=== PATIENT | female | born 1985 | race Caucasian/White ===

== ENCOUNTER 2020-12-22 18:56 | Emergency (ER) | payer OTHER ==
[~2020-12-22 18:56] MED LIST: AMOXICILLIN875 MG PO; BACTRIM DS TAB1 EACH PO; DEBROX15 ML AU; KEFLEX CAP 500500 MG PO; MACROBID 100 M100 MG PO; PERCOCET 10-321 EACH PO; TESSALON PERLE100 MG PO; TORADOL 10 MG T10 MG PO; ZOFRAN4 MG PO
== END 2020-12-22 21:50 | disposition home or self-care (01) ==
LOC: ER1 18:56
DX: S93.402A Sprain of unspecified ligament of left ankle, initial encounter (principal); X50.0XXA Overexertion from strenuous movement or load, initial encounter
CPT/HCPCS: 73610; 99283

== ENCOUNTER 2021-02-05 05:13 | Emergency (ER) | payer OTHER ==
[2021-02-05] MEDS ORDERED: TESSALON PERLE100 MG PO (07:59)
[2021-02-05] MEDS ORDERED: PROAIR DIGIHAL90 MCG INH (07:59)
[2021-02-05] MEDS ORDERED: MEDROL DOSEPAK 24 MG PO (08:11)
== END 2021-02-05 08:10 | disposition home or self-care (01) ==
LOC: ER1 05:13
DX: J06.9 Acute upper respiratory infection, unspecified (principal); Z20.822 Contact with and (suspected) exposure to COVID-19
CPT/HCPCS: 0240U; 87081; 87880; 96374; 99283; J1885

== ENCOUNTER 2021-02-28 09:32 | Emergency (ER) | payer OTHER ==
[~2021-02-28 09:32] MED LIST changes: +MEDROL DOSEPAK 24 MG PO; +PROAIR DIGIHAL90 MCG INH
[2021-02-28 11:11] LABS: BUN/CREATININE RATIO 14 (0-10)
[2021-02-28 11:16] LABS: HEMOGLOBIN 14.6 gm/dl (12.3-15.3); RED BLOOD COUNT 5.53 M/UL (4.00-5.10); WHITE BLOOD COUNT 15.4 K/UL (4.5-11.0)
[2021-02-28] MEDS ORDERED: NASONEX17 GM (12:45)
[2021-02-28] MEDS ORDERED: MACROBID 100 M100 MG PO (12:45)
== END 2021-02-28 13:02 | disposition home or self-care (01) ==
LOC: ER1 09:32
PROVIDERS: Emergency Medicine
DX: N39.0 Urinary tract infection, site not specified (principal); H92.02 Otalgia, left ear; Z20.822 Contact with and (suspected) exposure to COVID-19
CPT/HCPCS: 0240U; 71045; 80053; 81001; 83690; 85025; 87081; 87880; 93005; 99284

== ENCOUNTER 2021-06-17 10:09 | Emergency (ER) | payer OTHER ==
[~2021-06-17 10:09] MED LIST changes: +NASONEX17 GM
== END 2021-06-17 11:12 | disposition home or self-care (01) ==
LOC: ER1 10:09
DX: R52 Pain, unspecified (principal); R50.9 Fever, unspecified; Z20.822 Contact with and (suspected) exposure to COVID-19
CPT/HCPCS: 99283; U0003

== ENCOUNTER 2021-07-04 09:02 | Emergency (ER) | payer OTHER ==
[2021-07-04] MEDS ORDERED: NAPROXEN500 MG PO (11:24)
[2021-07-04] MEDS ORDERED: NORFLEX 100 MG100 MG PO (11:24)
== END 2021-07-04 12:20 | disposition home or self-care (01) ==
LOC: ER1 09:02
DX: S40.011A Contusion of right shoulder, initial encounter (principal); S20.212A Contusion of left front wall of thorax, initial encounter; K21.9 Gastro-esophageal reflux disease without esophagitis; V49.9XXA Car occupant (driver) (passenger) injured in unspecified traffic accident, initial encounter
CPT/HCPCS: 71046; 73030; 99284

== ENCOUNTER → 2021-08-20 | Outpatient (CLI) | payer OTHER ==
[~2021-08-20] MED LIST changes: +NAPROXEN500 MG PO; +NORFLEX 100 MG100 MG PO
== END ==
LOC: SLEEP 14:24
DX: G47.30 Sleep apnea, unspecified (principal); G47.33 Obstructive sleep apnea (adult) (pediatric)
CPT/HCPCS: 95811

== ENCOUNTER → 2021-08-28 | Outpatient (CLI) | payer OTHER ==
[2021-08-29 08:14] LABS: VITAMIN D, 25-HYDROXY 21.9 ng/mL (30.0-100.0)
[2021-08-29 10:14] LABS: RHEUMATOID ARTHRITIS FACTOR <10.0 IU/mL (<14.0)
== END ==
LOC: RAD 12:18
PROVIDERS: Nurse Practitioner Family
DX: D89.9 Disorder involving the immune mechanism, unspecified (principal); M25.50 Pain in unspecified joint; R76.8 Other specified abnormal immunological findings in serum; E55.9 Vitamin D deficiency, unspecified; M79.10 Myalgia, unspecified site; M25.539 Pain in unspecified wrist
CPT/HCPCS: 36415; 73110; 82550; 83520; 84439; 84443; 85652; 86140; 86200; 86431

== ENCOUNTER 2021-10-20 02:07 | Emergency (ER) | payer OTHER ==
[2021-10-20] MEDS ORDERED: MUCINEX DM ER1 EACH PO (05:39)
== END 2021-10-20 05:57 | disposition home or self-care (01) ==
LOC: ER1 02:07
DX: U07.1 COVID-19 (principal)
CPT/HCPCS: 99283; U0002

== ENCOUNTER 2021-11-06 11:36 | Emergency (ER) | payer OTHER ==
[~2021-11-06 11:36] MED LIST changes: +MUCINEX DM ER1 EACH PO
[2021-11-06] MEDS ORDERED: BROMFED DM COU473 ML PO (13:22)
== END 2021-11-06 13:30 | disposition home or self-care (01) ==
LOC: ER1 11:36
DX: J39.9 Disease of upper respiratory tract, unspecified (principal); K21.9 Gastro-esophageal reflux disease without esophagitis; Z88.8 Allergy status to other drugs, medicaments and biological substances; Z88.1 Allergy status to other antibiotic agents; Z88.6 Allergy status to analgesic agent; Z20.822 Contact with and (suspected) exposure to COVID-19
CPT/HCPCS: 0240U; 99283

== ENCOUNTER 2021-11-13 22:38 | Emergency (ER) | payer OTHER ==
[~2021-11-13 22:38] MED LIST changes: +BROMFED DM COU473 ML PO
[2021-11-13 23:05] LABS: HEMOGLOBIN 13.4 gm/dl (12.3-15.3); RED BLOOD COUNT 4.88 M/UL (4.00-5.10); WHITE BLOOD COUNT 9.8 K/UL (4.5-11.0)
[2021-11-13 23:25] LABS: BUN/CREATININE RATIO 10 (0-10)
== END 2021-11-14 01:58 | disposition home or self-care (01) ==
LOC: ER1 22:38
PROVIDERS: Physician Assistant
DX: R07.2 Precordial pain (principal); R07.89 Other chest pain; Z88.8 Allergy status to other drugs, medicaments and biological substances; Z20.822 Contact with and (suspected) exposure to COVID-19
CPT/HCPCS: 0240U; 71045; 80053; 82550; 82553; 83874; 83880; 84484; 85025; 85610; 85730; 93005; 99285

== ENCOUNTER 2021-12-04 08:07 | Emergency (ER) | payer OTHER ==
[2021-12-04] MEDS ORDERED: DOXYCYCLINE MO100 MG PO (10:51)
== END 2021-12-04 11:00 | disposition home or self-care (01) ==
LOC: ER1 08:07
DX: J18.9 Pneumonia, unspecified organism (principal); Z20.822 Contact with and (suspected) exposure to COVID-19; R52 Pain, unspecified
CPT/HCPCS: 0241U; 71046; 99283

== ENCOUNTER 2021-12-10 10:13 | Emergency (ER) | payer OTHER ==
[~2021-12-10 10:13] MED LIST changes: +DOXYCYCLINE MO100 MG PO
[2021-12-10] MEDS ORDERED: MACROBID 100 M100 M1 PO (13:22)
[2021-12-10] MEDS ORDERED: TORADOL 10 MG T10 MG PO (13:22)
[2021-12-10] MEDS ORDERED: CYCLOBENZAPRINE5 MG PO (13:22)
== END 2021-12-10 13:37 | disposition home or self-care (01) ==
LOC: ER1 10:13
DX: M51.37 Other intervertebral disc degeneration, lumbosacral region (principal); N39.0 Urinary tract infection, site not specified; M54.41 Lumbago with sciatica, right side; K21.9 Gastro-esophageal reflux disease without esophagitis
CPT/HCPCS: 72100; 81001; 84703; 87086; 96372; 99283; J1100; J1885

== ENCOUNTER 2022-01-12 12:29 | Emergency (ER) | payer OTHER ==
[~2022-01-12 12:29] MED LIST changes: +CYCLOBENZAPRINE5 MG PO; +MACROBID 100 M100 M1 PO
== END 2022-01-12 13:33 | disposition left against medical advice (07) ==
LOC: ER1 12:29
DX: Z53.21 Procedure and treatment not carried out due to patient leaving prior to being seen by health care provider (principal)